=== PATIENT | female | born 1955 | race Caucasian/White ===

== ENCOUNTER 2016-12-21 02:29 | Emergency (ER) | payer SELFPAY ==
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
[2016-12-21 02:42] VITALS: BP 148/79; PULSE 82; RESP 16; TEMP 98.2; O2SAT 95
== END 2016-12-21 03:25 | disposition home or self-care (01) ==
LOC: EDUNIT#
DX: S00.33XA Contusion of nose, initial encounter (principal); W51.XXXA Accidental striking against or bumped into by another person, initial encounter